=== PATIENT | male | born 1965 | race Caucasian/White ===

== ENCOUNTER → 2021-04-08 16:42 | Outpatient (CLI) | payer BC, SELFPAY ==
--- NOTE | 2021-04-08 | IMM_PTH ---
PATIENT: SCARLETT GAMA LOC: [facility] U#:[id number] AGE/SX: 60/M ROOM: RE04/08/[address]: Dr. Gabe Coughlin MD : 1965 BED: DIS: SPEC #: [id number] RECD: 04/10/21 12:29 STATUS: EDWIN MESFIN #: [id number] MAGDIEL: 04/08/21 00:[address]: Gabe Coughlin DEPT: IMMUNOHISTOCHEMISTRY RECD BY: Jazmyn Fuchs Tissues: A - PROSTATE RIGHT C - PROSTATE RIGHT Procedures: 34BE12 (add) P40 (add) 34BE12 (initial) PHYSICIAN & [place] [id number] SPECIMEN INFORMATION: Tissue Source: A - Right prostate, apex, core biopsy, C - Right prostate, base, core biopsy Clinical Info: Elevated PSA Specimen Number: [id number] A & C CPT code: 57599, 56908 x3 METHODOLOGY: Deparaffinized sections of prefer/formalin-fixed tissue or PAP/DQ stained slides are incubated with monoclonal/polyclonal antibodies/oligonucleotide probes. Localization is made via biotin free immunoperoxidase method. Appropriate controls are performed and reacted as expected. Results on target cell population are indicated in the following table: RESULTS: ANTIBODY / CLONE RESULT Block A P40 (BC28) positive 34BE12 (34BE12) positive Block C P40 (BC28) negative 34BE12 (34BE12) negative These tests were developed and their performance characteristics determined by [facility]. They may not have been cleared or approved by the U.[place]. Food and Drug Administration. The FDA has determined that such clearance or approval is not necessary. The above immunohistochemical/dualISH markers are ordered and reviewed by the Pathologist. INTERPRETATION: A. Right prostate, apex, core biopsy: Benign prostatic tissue. C. Right prostate, base, core biopsy: Adenocarcinoma. AM:hayley 04/11/2021
--- NOTE | 2021-04-08 08:00 | PROSBIL_PTH ---
PATIENT: SCARLETT GAMA LOC: [facility] U#:[id number] AGE/SX: 60/M ROOM: RE04/08/[address]: Dr. Gabe Coughlin MD : 1965 BED: DIS: SPEC #: [id number] RECD: 04/08/21 15:00 STATUS: EDWIN MESFIN #: [id number] MAGDIEL: 04/08/21 08:[address]: Gabe Coughlin DEPT: SURGICAL PATHOLOGY RECD BY: Vijay Chaney Tissues: A - PROSTATE RIGHT B - PROSTATE RIGHT C - PROSTATE RIGHT D - PROSTATE LEFT E - PROSTATE LEFT F - PROSTATE LEFT Procedures: PROSTATE BX HEADER OPERATION: Prostate biopsy PRE-OP DIAGNOSIS: R97.20 TISSUE SUBMITTED: A - Right apex, B - Right mid, C - Right base, D - Left apex, E - Left mid, F - Left base MICROSCOPIC DIAGNOSIS A. Right prostate, apex, core biopsy: Focal glandular atrophy. See comment. B. Right prostate, mid, core biopsy: Focal glandular atrophy. C. Right prostate, base, core biopsy: Adenocarcinoma Jose D grade: 6 (3+3) Maximal length: 0.5mm Number of cores involved: 1/2 Percent of core(s) involved: 1% Perineural invasion: Not Present. D. Left prostate, apex, core biopsy: Benign prostatic tissue. E. Left prostate, mid, core biopsy: Benign prostatic tissue. F. Left prostate, base, core biopsy: Benign prostatic tissue. AM:hayley 04/10/2021 COMMENT A & C. Immunohistochemistry ([id number]) supports the above diagnosis. MICROSCOPIC DESCRIPTION Slides are reviewed. GROSS DESCRIPTION A - Received is one container designated prostate, right apex. The specimen consists of two elongated fragments of light quintana-white soft tissue each measuring 0.6 cm in length and 0.1 cm in diameter. The specimen is totally submitted in one cassette. B - Received is one container designated prostate, right mid. The specimen consists of two elongated fragments of light quintana-white soft tissue each measuring 1 cm in length and 0.1 cm in diameter. The specimen is totally submitted in one cassette. C - Received is one container designated prostate, right base. The specimen consists of two elongated fragments of light quintana-white soft tissue each measuring 1.5 cm in length and 0.1 cm in diameter. The specimen is totally submitted in one cassette. D - Received is one container designated prostate, left apex. The specimen consists of one elongated fragment of light quintana-white soft tissue measuring 1 cm in length and 0.1 cm in diameter. The specimen is totally submitted in one cassette. E - Received is one container designated prostate, left mid. The specimen consists of two elongated fragments of light quintana-white soft tissue each measuring 1 cm in length and 0.1 cm in diameter. The specimen is totally submitted in one cassette. F - Received is one container designated prostate, left base. The specimen consists of two elongated fragments of light quintana-white soft tissue each measuring 1 cm in length and 0.1 cm in diameter. The specimen is totally submitted in one cassette. / AM:rg 04/09/21 TC:0 CPT: 88214 x6
== END ==
PROVIDERS: Referring Provider Urology; Visit Provider Urology
DX: R97.20 Elevated prostate specific antigen [PSA] (principal)
CPT/HCPCS: 88305; 88341; 88342; G0416

== ENCOUNTER → 2022-04-09 | Outpatient (CLI) | payer BC, SELFPAY ==
--- NOTE | 2022-04-09 15:31 | MRI_ITS ---
MR Prostate WO/W Contrast 04/09/2022 3:47 PM COMPARISON: None CLINICAL HISTORY: 57-year-old male with elevated PSA. TECHNIQUE: Standard MRI protocol was used before and after administration of 14 cc of Clariscan. FINDINGS: Prostate volume: 45 cc PSA density: PSA level not provided. Length of membranous urethra: 1.7 cm Post-biopsy hemorrhage: None Multiparametric MR evaluation: Heterogeneous appearance of the central gland is consistent with benign prostatic hyperplasia. Lesion 1: LOCATION -1.3 x 1.2 x 1.3 cm moderately hypointense lesion in the left posterior lateral peripheral zone at mid gland. It is mildly bright on DWI and moderately dark on ADC map. T2 -3 DWI -3 DCE -inconclusive Overall PI-RADS v2 score = 3 Capsular margin and neurovascular bundle: Not involved Seminal vesicles: Not involved Lymph nodes: No lymphadenopathy in the field of view. Bones: No suspicious lesions in the field of view. MRI/Pelvis W/WO Contrast IMPRESSION: - 1.3 cm PI-RADS 3 lesion in the left posterolateral PZ at mid gland. - No evidence of macroscopic extracapsular extension. - No evidence of seminal vesicle invasion. - No lymphadenopathy. - No suspicious bone lesions. Electronically Signed: Michael Hawkins MD at 23:34 EST ,
== END | disposition home or self-care (01) ==
PROVIDERS: PCP Family Medicine; Visit Provider Urology
DX: R97.20 Elevated prostate specific antigen [PSA] (principal); N40.0 Benign prostatic hyperplasia without lower urinary tract symptoms
CPT/HCPCS: 72197; A9575